=== PATIENT | female | born 1975 | race African-American/Black ===

== ENCOUNTER 2023-10-05 17:53 | Emergency (ER) | payer MEDICAID ==
[~2023-10-05] VITALS: Ht 172.7 cm; Wt 80.0 kg
[2023-10-05 17:58] VITALS: TEMP 98; O2SAT 99
[2023-10-05] MEDS ORDERED: ONDANSETRON HCL 4MG/2ML INJ IV STA (18:01)
[2023-10-05] MEDS ORDERED: AMLODIPINE 10MG TABLET PO ONE (18:15)
[2023-10-05] MEDS ORDERED: AMLODIPINE 5MG TABLET PO NR (18:15)
[2023-10-05 19:10] LABS: ALANINE AMINOTRANSFERASE 41 IU/L (10-49); ALBUMIN 4.3 g/dL (3.2-4.8); ASPARTATE AMINOTRANSFERASE 34 IU/L (<34); BILIRUBIN TOTAL 0.8 mg/dL (0.1-1.0); CALCIUM 9.5 mg/dL (8.7-10.4); CARBON DIOXIDE 28 mEq/L (21-32); CHLORIDE 105 mEq/L (98-107); CREATININE 0.8 mg/dL (0.6-1.0); ETHANOL BLOOD < 10 mg/dL (<10); GLUCOSE 101 mg/dL (70-105); HCG SCREEN NEGATIVE; POTASSIUM 3.4 mEq/L (3.5-5.1); PROTEIN TOTAL 7.7 g/dL (6.0-8.3); SODIUM 139 mEq/L (136-145); TROPONIN I HIGH SENSITIVITY 15 ng/L (3.0-34); UREA NITROGEN BLOOD 7 mg/dL (9-23)
[2023-10-05 19:12] LABS: BASOPHILS % 0.5 % (0.0-2.0); HEMATOCRIT. 42.7 % (36.0-48.0); HEMOGLOBIN. 14.2 g/dL (12.0-16.0); LYMPHOCYTES % 11.9 % (20.0-50.0); MEAN CORPUSCULAR HEMOGLOBIN 30.7 pg (28.0-32.0); MEAN CORPUSCULAR HGB CONC 33.4 g/dL (31.0-37.0); MEAN CORPUSCULAR VOLUME 91.8 fL (81.0-99.0); NEUTROPHILS % 75.6 % (40.0-76.0); PLATELET 229 x1000/uL (130-400); RED BLOOD CELL COUNT 4.64 mill/uL (4.2-5.4); RED CELL DISTRIBUTION WIDTH 13.7 % (11.6-14.6); WHITE BLOOD COUNT 6.3 x1000/uL (4.5-11.0)
[2023-10-05] MEDS ORDERED: CLONIDINE 0.1MG TABLET PO ONE (20:15)
[2023-10-05] MEDS ORDERED: IBUPROFEN 600MG TABLET PO ONE (20:15)
[2023-10-05] MEDS ORDERED: AMLO5TAB4 MT (21:46)
[2023-10-05 22:49] VITALS: BP 167/82; PULSE 98; RESP 14
== END 2023-10-05 22:58 | disposition home or self-care (01) ==
LOC: ER 17:53
DX: I10 Essential (primary) hypertension (principal); Z20.822 Contact with and (suspected) exposure to COVID-19
CPT/HCPCS: 80053; 80320; 84703; 83880; 85025; 84484; 36415; 71045; 70450; 93005; 96374; 99291; 87426; J2405; Z7610; G0480